=== PATIENT | female | born 1955 | race Caucasian/White ===

== ENCOUNTER → 2016-12-14 | Day surgery (SDC) | payer BC ==
[~2016-12-14] MED LIST: ADIP37.55 PO; BUPIVACAINE HCL PF 0.75% 30 ML VIAL ONE; DEXI30CA2 PO; DICY10 PO; EPINEPHrine HCL (1:1000) 30 MG/30 ML VIAL ONE; LACTATED RINGER'S 1000 ML INJ 1,000 ML ONE; LEVO.1 PO; LEXA20TA PO; LIDOCAINE 1.5%/EPINEPHrine 1:200,000 PF SOLN 30 ML AMP ONE; LORA-474 PO; LORTA5 PO; MIDAZOLAM HCL 5 MG/ML VIAL (1 ML) ONE; PRIN5TAB PO; PROPOFOL 200 MG/20 ML AMP IV ONE; ceFAZolin 2 GM PREMIX 50 ML ONE
--- NOTE | 2016-12-14 22:46 | MP ---
cc: PRINCE POE DATE OF SURGERY 12/14/2016 PREOPERATIVE DIAGNOSIS Right shoulder rotator cuff tendon tear, right shoulder impingement syndrome, right shoulder labral tear. POSTOPERATIVE DIAGNOSES Right shoulder rotator cuff tendon tear, right shoulder impingement syndrome, right shoulder labral tear. PROCEDURE Right shoulder arthroscopic rotator cuff repair, right shoulder arthroscopic subacromial decompression, right shoulder arthroscopic extensive debridement of labral tear. SURGEON Dr. Prince Poe. [employer] ANESTHESIA General with interscalene block. ESTIMATED BLOOD LOSS Less 10 mL COMPLICATIONS None. IMPLANTS USED Arthrex. JUSTIFICATION The patient is a 61-year-old female who injured the right shoulder. She had persistent pain, weakness in regards to her condition with failure of conservative treatment. Clinical exam confirmed the above-named findings and the patient was counseled as to the risks, benefits and alternatives to the above named proposed surgical procedure. She did wish to proceed with surgery. PROCEDURE IN DETAILS A written consent was obtained. The patient identified by name. The scalene block anesthesia was administered to the right upper extremity by the anesthesiologist. The patient taken to the operating room where general anesthesia was administered as well 2 grams of IV Ancef. The patient was carefully turned to the left lateral decubitus position. A lateral arm roll was placed. All bony prominences and pressure points were well padded. The patient's neck was carefully monitored and kept neutral. The arm was kept in the arm saldivar. We gently applied a right upper extremity with 10 pounds of traction placed. The right shoulder was prepped and draped using as isopropyl alcohol, Hibiclens solution, DuraPrep solution. After a time-out was performed, a standard posterior and anterior glenohumeral arthroscope portal revealed evidence of labral tearing along the anterior, superior and posterior portions. An arthroscopic shaver was introduced from the anterior portal. Extensive debridement of the labrum was performed. The shaver was used to perform a debridement of labrum at the 3 o'clock position, up to 12 o'clock position and back down to 9 o'clock position. The biceps origin was intact. Minimal chondromalacia of the glenohumeral joint was noted. There was evidence of tearing along the anterior portion of the supraspinous rotator cuff tendon which was also debrided. Attention was turned to the subacromial space where there was evidence of impingement bursitis. Arthroscopic shaver was introduced from a lateral portal and subacromial decompression was performed. The shaver used to perform extensive bursectomy. An arthroscopic bur was used to perform an acromioplasty and the device was used to release the coracoacromial ligament. There was evidence of a full-thickness tear of the rotator cuff tendon involving the anterior portion of the supraspinatus tendon insertion. A bur was used to decorticate the greater tuberosity in preparation for rotator cuff tendon repair. An Arthrex Scorpion device was used to shuttle #2 Fiber tape suture through the anterior and posterior portion of the tendon in a horizontal mattress pattern. A #2 Fiber link suture was placed along the anterior portion as well. The sutures were then placed through the eyelet of an Arthrex 4.75 mm Bioswivel lock anchor. The sutures were tensioned and the anchor was then inserted in the greater tuberosity for rotator cuff tendon repair. The repair was probed and noted to have good stability after fixation. At the conclusion of the procedure, the arthroscopic portals were closed with 3-0 Prolene suture. Sterile dressings were applied. The patient was placed in sling and swath immobilization. She tolerated the procedure well with no intraoperative complications noted. Ron Milian physician dental assistant medical assistant, certified was present during the entire procedure to include patient positioning and the procedure itself. The medical necessity of a physician dental assistant medical assistant was indicated in this case due to the complexity of the procedure. He assisted with appropriate manipulation of the arm and also manipulation of the camera. He assisted with shuttling of sutures and also implantation of suture anchor for purpose of rotator cuff tendon repair. Prince Poe MD JWM/KK /1:56 PM /10:26 PM
== END | disposition home or self-care (01) ==
LOC: ESDC 11:11
PROVIDERS: ATTEND Orthopaedic Surgery Sports Medicine
DX: M75.121 Complete rotator cuff tear or rupture of right shoulder, not specified as traumatic (principal); S43.401A Unspecified sprain of right shoulder joint, initial encounter; M75.41 Impingement syndrome of right shoulder
CPT/HCPCS: 01630; 01991; 29823; 29826; 29827; 64417; C1713; J0171; J0690; J2250; J7120